=== PATIENT | female | born 1965 | race Caucasian/White ===

== ENCOUNTER → 2017-01-29 | Outpatient (CLI) | payer BC ==
[~2017-01-29] MED LIST: CLR10 PO; IBUP-1459 PO; OXYC-57 PO
== END | disposition home or self-care (01) ==
LOC: C.PAPS 09:27
PROVIDERS: ATTEND Physician Assistant
DX: Z01.419 Encounter for gynecological examination (general) (routine) without abnormal findings (principal)

== ENCOUNTER → 2017-02-12 | Outpatient (CLI) | payer BC ==
--- NOTE | 2017-02-13 07:55 | MAMMOGRAPHY REPORT ---
UNILATERAL LEFT DIGITAL DIAGNOSTIC MAMMOGRAM TOMOSYNTHESIS WITH CAD AND TARGETED LEFT ULTRASOUND: 01/19 CLINICAL HISTORY: 52-year-old woman presents with reported lymph node swelling and fullness in the le ft axilla. She can currently has a left frozen shoulder. History of prior benign right breast stere otactic biopsy. TECHNIQUE: Left breast CC and MLO 2-D and tomosynthesis images, spot magnification left CC and ML vi ews were obtained. Current study was also evaluated with a Computer Aided Detection (CAD) system. COMPARISON: Comparison is made to exams dated: 06/19/2016 mammogram, 11/30/2015 mammogram, 11/21/2015 m ammogram, 08/30/2014 mammogram, 05/22/2012 mammogram, and 09/12/2010 mammogram - [facility] enter. BREAST COMPOSITION: The tissue of the left breast is heterogeneously dense, which may obscure small masses. FINDINGS: A triangle palpable marker overlies the superior left axilla, identified on the MLO view. A few morphologically normal lymph nodes are identified projecting over the superior posterior pector trae muscle on the left MLO view, which appear similar in number and size comparing back to prior christiane mograms including the 2015 and 2010 mammograms. There is a small cluster of microcalcifications in t he far posterior, medial left breast on the CC view that is increasingly conspicuous compared to prio r exams. Additional spot magnification views were obtained. On the spot magnification views, there are approximately 3 punctate and additional faint amorphous microcalcifications measuring 3 x 7 mm. These are not clearly identified on the spot magnification MLO views. These most likely represent be nign fibrocystic changes as they appear similar to other numerous clusters of microcalcifications beverly aterally and also the biopsied cluster in the right breast. However, given the increased conspicuity , a short interval follow-up left diagnostic mammogram including spot magnification views is recommen ded in 6 months. Annual right mammography will be due at that time. Targeted ultrasound was performed in the left axilla in the area of swelling pointed out by the erikae nt. At least 3 morphologically normal lymph nodes are seen, the cortical thickness of these lymph no tanner is within the range of normal. No suspicious mass or suspicious lymphadenopathy identified. IMPRESSION: ACR-BI-RADS CATEGORY 3: PROBABLY BENIGN, TARGETED ULTRASOUND ACR-BI-RADS CATEGORY 3: PRO BABLY BENIGN 1. No suspicious lymphadenopathy or other suspicious abnormality within the area of swelling in the left axilla pointed out by the patient. A few morphologically normal lymph nodes project over the trevino perior pectoralis muscle on the MLO view that appear stable in size and number dating back to at leas t 2010. Several lymph nodes visualized on ultrasound are within the range of normal a cortical thick ness. Therefore, clinical follow-up is recommended as biopsy of a clinically suspicious mass should not be precluded by negative imaging. 2. There is a small cluster of faint amorphous and punctate microcalcifications in the far posterior medial left breast, only definitely seen on the CC view. They appear similar to other microcalcific ations in both breasts and are probably benign. However, given the increased conspicuity, a short in terval follow-up diagnostic left mammogram including spot magnification views is recommended to ensur e stability in 6 months. Annual right mammography will be due at that time. These results and recommendations were discussed with the patient at the time of the exam. Approximately 10% of breast cancers are not detected with mammography. A negative mammographic report should not delay biopsy if a clinically suggestive mass is present. Katrin Ramos M.D. ay/:02/12/2017 15:08:04 Teacher Dramatics: Aly VALERO(Laurie)(Alexa), [facility] letter sent: Follow Up Recommended 3 BI-RADS Code: ACR-BI-RADS Category 3: Probably Benign Ultrasound BI-RADS: ACR-BI-RADS Category 3: Pr obably Benign
== END | disposition home or self-care (01) ==
LOC: C.MAMM 13:04
PROVIDERS: ATTEND Physician Assistant
DX: R59.0 Localized enlarged lymph nodes (principal); R92.0 Mammographic microcalcification found on diagnostic imaging of breast

== ENCOUNTER → 2017-02-27 | Day surgery (SDC) | payer BC ==
[2017-02-12 12:01] VITALS: Ht 167.6 cm; Wt 72.7 kg
[2017-02-12 15:52] LABS: BASO % 0.8 %; BASO ABS # 0.05 K/uL (0-0.2); COMPLETE YES; EOS % 1.2 %; HEMATOCRIT 40.4 % (37-47); IG% 0.2 %; LYMPH % 32.1 %; MEAN CORPUSCULAR HEMOGLOBIN 29.3 pg (25-34); MEAN CORPUSCULAR HGB CONC 32.9 g/dl (32-36); MEAN PLATELET VOLUME 9.4 fL (7.4-10.4); MONO % 9.1 %; NEUT % 56.6 %; PLATELET COUNT 335 K/uL (130-400); RED BLOOD COUNT 4.54 M/uL (4.2-5.4); WHITE BLOOD COUNT 5.92 K/uL (4.8-10.8)
[2017-02-12 16:15] LABS: CREATININE 0.71 mg/dl (0.60-1.20); POTASSIUM 3.8 mmol/L (3.5-5.1)
[~2017-02-27] VITALS: Ht 167.6 cm; Wt 72.7 kg
[~2017-02-27] MED LIST changes: +ACETAMINOPHEN 325 MG TAB ONE; +ACETAMINOPHEN 325 MG TAB PO ONE; +ATROPINE SULFATE 0.1 MG/ML 5ML SYR IV PRN; +BUPIVACAINE 0.5 % 5 MG/1 ML PF 10ML VIAL ONE; +EpHEDrine SULFATE INJ 50 MG/ML AMP IV PRN; +FENTANYL CITRATE INJ 50 MCG/1 ML 2 ML VIAL IV PRN; +FENTANYL CITRATE INJ 50 MCG/1 ML 2 ML VIAL ONE; +HYDROmorphone INJ 1 MG/ML SYR IV PRN; +LACTATED RINGER'S 1000ML 1,000 ML IV SCH; +LIDOCAINE HCL 1% MPF 2 ML VIAL ONE; +METHYLPREDNISOLONE ACETATE 80 MG/ML VIAL ONE; +MIDAZOLAM HCL 1 MG/ML 2ML VIAL ONE; +ONDANSETRON INJ 2 MG/ML 2 ML VIAL IV PRN; +ONDANSETRON INJ 2 MG/ML 2 ML VIAL ONE; +OXYCODONE/ACETAMINOPHEN 5-325 TAB PO PRN; +PROMETHAZINE HCL INJ 12.5 MG in SODIUM CHLORIDE 0.9% 50ML 50 ML IV PRN; +PROPOFOL IV EMULSION 10 MG/ML 20 ML VIAL IV ONE; +ROPIVACAINE 0.5% 5 MG/ML 30 ML VIAL ONE; +SODIUM CHLORIDE 0.9% 1000ML 1,000 ML IV SCH
--- NOTE | 2017-02-27 08:08 | History & Physical Bridge Note ---
H&P Re-Evaluation Bridge Note: I have examined the patient, reviewed the History & Physical and in the interval since the performance of the History & Physical I have noted the following changes of clinical significance: No changes noted
[2017-02-27 12:25] VITALS: TEMP 36.6
--- NOTE | 2017-02-27 12:25 | Discharge Instructions-SurgCtr ---
Discharge Instructions Date of Service Feb 27, 2017. Visit Reason for Visit: Adhesive Capsulitis Of Shoulder;Pre-Op Discharge Discharge Diagnosis / Problem: SAME ABOVE Discharge Goals Goal(s): Decrease discomfort, Improve function Activity Recommendations Activity Limitations: as noted below Lifting Limitations: gradually increase as tolerated Exercise/Sports Limitations: gradually increase as tolerated Shower/Bathe: tomorrow Driving or Machine Use: resume 1 day after discharge Anesthesia . Post Anesthesia Instructions: If you have had General Anesthesia or IV Sedation: * Do not drive today. * Resume driving when surgeon permits. * Do not make important decisions or sign legal documents today. * Call surgeon for: 1. Temperature elevations greater than 101 degrees F. 2. Uncontrollable pain. 3. Excessive bleeding. 4. Persistent nausea and vomiting. 5. Medication intolerance (nausea, vomiting or rash). * For nausea and vomiting use only clear liquids such as: tea, soda, bouillon until nausea subsides, then gradually increase diet as tolerated. * If you have any concerns or questions, call your surgeon's office. If physician is unavailable and it is an emergency, call 911 or go to the nearest emergency room. . Instructions / Follow-Up Instructions / Follow-Up MEDICATIONS: * Resume previous medications unless instructed otherwise by your surgeon. * Always take pain medication on a full stomach or with food to avoid upset stomach. * Do not drink alcohol or drive while taking narcotics. * Ibuprofen or Tylenol may be taken if narcotic not needed. SPECIAL CARE INSTRUCTIONS: __ None _X_ Keep extremity elevated and iced x 48 hours; apply ice 20-30 minutes 8-10 times/day. May remove at night. _X_ Sling (REMOVE TOMORROW) __24 hrs/day __ Remove at night __ Shoulder Immobilizer __ 24 hrs/day __ Remove at night __ Dressing __ Maintain until seen in office, may shower with plastic over site __ Remove dressings in 24-48 hours and then may shower __ Cover incisions with band-aids after showering __ Do not remove steri-strips Call physician if chills or temperature rises above 102 degrees or pain unrelieved by prescribed pain medications at . . Diet Recommendations Home Diet: no limitations Fluid Restriction: None Procedures Procedures Performed: Left Shoulder Manipulation Under Anesthesia Pending Studies Studies pending at discharge: no Work Instructions Return To Work: 5 days (WHEN PAIN IS TOELRATED ) Medical Emergencies . Who to Call and When: Medical Emergencies: If at any time you feel your situation is an emergency, please call 911 immediately. . Non-Emergent Contact Non-Emergency issues call your: Primary Care Provider Call Non-Emergent contact if: you have a fever, temperature is above 101.5 . . "Provider Documentation" section prepared by Santiago Gomez. .
[2017-02-27 13:25] VITALS: BP 125/87; PULSE 73; O2SAT 97
--- NOTE | 2017-02-27 13:34 | Anesthesia Progress Nt - [facility] ---
Anesthesia Post Op Note Date & Time Feb 27, 2017 at 13:34 Vital Signs Pain Intensity: 3.0 Vital Signs Past 12 Hours Date Time Temp Pulse Resp B/P (MAP) Pulse Ox O2 Delivery O2 Flow Rate FiO2 02/27/17 13:25 73 14 125/87 (100) 97 Room Air 02/27/17 12:54 79 16 146/93 (110) 98 Room Air 02/27/17 12:25 36.6 78 16 118/77 (91) 95 Room Air 02/27/17 12:06 9 02/27/17 12:05 137/98 02/27/17 12:01 73 02/27/17 12:01 73 12 99 02/27/17 12:00 130/86 02/27/17 11:55 82 20 99 02/27/17 11:55 83 8 131/89 99 02/27/17 11:50 80 02/27/17 11:50 80 9 123/76 99 02/27/17 11:45 120/78 02/27/17 11:44 82 13 99 02/27/17 11:44 80 14 98 02/27/17 11:40 124/77 02/27/17 11:36 110/70 02/27/17 11:34 79 11 99 02/27/17 11:34 80 02/27/17 11:30 127/84 02/27/17 11:29 87 02/27/17 11:29 86 14 94 02/27/17 11:28 80 18 121/78 (92) 100 Mask 6 02/27/17 10:29 36.7 71 16 111/73 (86) 100 Room Air Notes Mental Status: alert / awake / arousable, participated in evaluation Pt Amnestic to Procedure: Yes Nausea / Vomiting: adequately controlled Pain: adequately controlled Airway Patency, RR, SpO2: stable & adequate BP & HR: stable & adequate Hydration State: stable & adequate Anesthetic Complications: no major complications apparent
--- NOTE | 2017-02-27 15:30 | [facility] Post Operative Brief Note ---
Immediate Operative Summary Operative Date Feb 27, 2017. Pre-Operative Diagnosis Adhesive Capsulitis of Left Shoulder Post-Operative Diagnosis Same Procedure(s) Performed Left Shoulder Manipulation Under Anesthesia Surgeon Dr. Alvarez Community Educator Surgeon(s) None Estimated Blood Loss 0 Findings as above Specimens None Complication(s) None Disposition Recovery Room / PACU
--- NOTE | 2017-02-27 18:15 | OPERATIVE REPORT ---
DATE OF OPERATION: 02/27/2017 PREOPERATIVE DIAGNOSIS: Adhesive capsulitis of the left shoulder. POSTOPERATIVE DIAGNOSIS: Same. PROCEDURE: Manipulation under anesthesia, left shoulder. SURGEON: Dr. Damián Alvarez. URBAN FORESTER: None. ANESTHESIA: General with a left interscalene nerve block. COMPLICATIONS: None. CONDITION: Stable to PACU. INDICATIONS: Vernell is a pleasant 52-year-old female who has been dealing with increasing tightness of her left shoulder. Clinical examination was diagnostic for adhesive capsulitis. After failing conservative treatment, she elected to undergo a manipulation. DESCRIPTION OF PROCEDURE: On 02/27/2017, she arrived at [facility] for the above procedure. She was seen in the preoperative holding area and the operative extremity was identified and signed. She was given a left interscalene nerve block and taken back to the operating room, laid on the table in supine position and given general anesthesia. A time-out was done and the patient and operative extremity was properly identified. Preoperatively, she only had about 60 degrees of abduction and 30 degrees of external rotation. A gentle manipulation was done under anesthesia in both abduction, external and internal rotation. I was able to break up the adhesions of the capsule and get full range of motion of her shoulder. The shoulder was then injected with 80 mg of Depo-Medrol and 5 mL of Marcaine. She was then taken to the postanesthesia care unit in stable condition. She tolerated the procedure well. I attest to the content of the Intraoperative Record and any orders documented therein. Any exception s are noted below.
== END | disposition home or self-care (01) ==
LOC: X.SURG 10:10
PROVIDERS: ATTEND Orthopaedic Surgery
DX: M75.02 Adhesive capsulitis of left shoulder (principal); Z87.891 Personal history of nicotine dependence

== ENCOUNTER → 2017-08-18 | Outpatient (CLI) | payer OTHER ==
[~2017-08-18] MED LIST changes: -ACETAMINOPHEN 325 MG TAB ONE; -ACETAMINOPHEN 325 MG TAB PO ONE; -ATROPINE SULFATE 0.1 MG/ML 5ML SYR IV PRN; -BUPIVACAINE 0.5 % 5 MG/1 ML PF 10ML VIAL ONE; -EpHEDrine SULFATE INJ 50 MG/ML AMP IV PRN; -FENTANYL CITRATE INJ 50 MCG/1 ML 2 ML VIAL IV PRN; -FENTANYL CITRATE INJ 50 MCG/1 ML 2 ML VIAL ONE; -HYDROmorphone INJ 1 MG/ML SYR IV PRN; -LACTATED RINGER'S 1000ML 1,000 ML IV SCH; -LIDOCAINE HCL 1% MPF 2 ML VIAL ONE; -METHYLPREDNISOLONE ACETATE 80 MG/ML VIAL ONE; -MIDAZOLAM HCL 1 MG/ML 2ML VIAL ONE; -ONDANSETRON INJ 2 MG/ML 2 ML VIAL IV PRN; -ONDANSETRON INJ 2 MG/ML 2 ML VIAL ONE; -OXYCODONE/ACETAMINOPHEN 5-325 TAB PO PRN; -PROMETHAZINE HCL INJ 12.5 MG in SODIUM CHLORIDE 0.9% 50ML 50 ML IV PRN; -PROPOFOL IV EMULSION 10 MG/ML 20 ML VIAL IV ONE; -ROPIVACAINE 0.5% 5 MG/ML 30 ML VIAL ONE; -SODIUM CHLORIDE 0.9% 1000ML 1,000 ML IV SCH
--- NOTE | 2017-08-18 15:53 | MAMMOGRAPHY REPORT ---
BILATERAL DIGITAL DIAGNOSTIC MAMMOGRAM TOMOSYNTHESIS WITH CAD: 08/18/2017 CLINICAL HISTORY: Short interval follow-up of left breast calcifications. History of benign stereota ctic biopsy of the right breast. Due for routine annual mammography. TECHNIQUE: Breast tomosynthesis in addition to standard 2D mammography was performed. Current study was also evaluated with a Computer Aided Detection (CAD) system. Bilateral CC and MLO 2-D and tomosy nthesis images and spot magnification left CC and ML views were obtained. COMPARISON: Comparison is made to exams dated: 02/12/2017 mammogram, 02/12/2017 ultrasound, 06/19/2016 mammogram, 11/30/2015 mammogram, 11/21/2015 mammogram, and 08/30/2014 mammogram - [facility]. BREAST COMPOSITION: The tissue of both breasts is heterogeneously dense, which may obscure small mas ses. FINDINGS: Spot magnification views of the left breast demonstrate a small 3 mm cluster of punctate c alcifications within the left superior posterior breast, not clearly evident on the cc view but thoug ht to project laterally based on the tomosynthesis localizer bar. This cluster appears similar to th e previously biopsied cluster of calcifications in the right breast and is probably benign. The othe r previously described grouped calcifications within the left medial posterior breast on the cc view are not significantly changed compared to the January 2017 exam and are probably benign. The remainder of both breasts are not significantly changed, without suspicious masses, calcifications, or areas of architectural distortion noted. Other scattered bilateral benign-appearing calcifications are noted . A biopsy marker clip is again noted within the right upper outer quadrant from prior benign stereo tactic biopsy. IMPRESSION: ACR-BI-RADS CATEGORY 3: PROBABLY BENIGN Two groups of punctate benign appearing calcifications in the left breast are probably benign. Recom mend follow-up diagnostic tomosynthesis mammograms of the left breast in 6 months to reevaluate. The patient has been verbally notified of the results. Approximately 10% of breast cancers are not detected with mammography. A negative mammographic report should not delay biopsy if a clinically suggestive mass is present. Isabel Wolf M.D. /:08/18/2017 11:57:58 General Internist: Aly VALERO(Laurie)(Alexa), [facility] letter sent: Follow Up Recommended 3 BI-RADS Code: ACR-BI-RADS Category 3: Probably Benign
== END | disposition home or self-care (01) ==
LOC: C.MAMM 10:54
PROVIDERS: ATTEND Obstetrics & Gynecology
DX: R92.0 Mammographic microcalcification found on diagnostic imaging of breast (principal)

== ENCOUNTER → 2017-11-13 | Outpatient (CLI) | payer OTHER, BC ==
[~2017-11-13] MED LIST changes: -OXYC-57 PO
--- NOTE | 2017-11-14 08:01 | PULMONARY FUNCTION TEST ---
CLINICAL DATA: 52-year-old female with a height of 66 inches and a weight of [address] Perez for evaluation of shortness of breath. Pre-bronchodilator spirometry was performed. FINDINGS: Pre-bronchodilator spirometry was within normal limits. FVC was 117% of predicted. FEV1 was 113% of predicted. [id number] was 97% of predicted. IMPRESSION: Normal baseline spirometry. MTDD
== END | disposition home or self-care (01) ==
LOC: C.RC 09:51
PROVIDERS: ATTEND Family Medicine
DX: R06.02 Shortness of breath (principal)

== ENCOUNTER → 2018-02-16 | Outpatient (CLI) | payer OTHER ==
--- NOTE | 2018-02-16 15:43 | MAMMOGRAPHY REPORT ---
UNILATERAL LEFT DIGITAL DIAGNOSTIC MAMMOGRAM TOMOSYNTHESIS WITH CAD: 02/16/2018 CLINICAL HISTORY: 53-year-old woman presents for continued close follow-up evaluation of the left nolberto ast. She has a history of prior benign right breast stereotactic biopsy performed in December 2015. There was a non-biopsied cluster of faint calcifications in the medial, far posterior left breast for whic h serial follow-up imaging was performed but on the most recent prior follow-up, a new cluster of marcelina cifications was also seen in the superior left breast, only on the MLO view. Now patient presents to reevaluate both clusters of calcifications in the left breast. TECHNIQUE: Left CC, MLO and exaggerated lateral CC 2D and tomosynthesis images; spot magnification le ft CC and ML views were obtained. Current study was also evaluated with a Computer Aided Detection ( CAD) system. COMPARISON: Comparison is made to exams dated: 08/18/2017 mammogram, 02/12/2017 mammogram, 06/19/2016 mammogram, 12/22/2015 mammogram, 11/30/2015 mammogram, and 11/21/2015 mammogram - [facility]. BREAST COMPOSITION: The tissue of left breast is heterogeneously dense, which may obscure small luci s. FINDINGS: The glandular tissue pattern of the left breast is similar to prior exams. There is a stab le grouping of coarse heterogeneous calcifications and a few scattered benign rim calcifications in t he left breast. There is a very faint grouping of punctate/amorphous microcalcifications in the slig htly medial and far posterior left breast, best appreciated on tomosynthesis slice 1723/89 and overa ll better seen on the 2D full-field view as opposed to the spot magnification view. This cluster of calcifications appears somewhat similar to prior exams including the 02/12/2017 spot magnification vie ws and also the full-field to 05/09/2015 mammogram, suggesting benignity. The cluster of calcificati ons in the superior posterior left breast on the MLO view appears increased in number based on the fu ll-field view. A spot magnification view performed in the superior left breast demonstrates a 3.8 mm cluster of calcifications. Given the apparent increase in number and conspicuity of this cluster, a n additional exaggerated lateral CC view was performed which demonstrates this new cluster of calcifi cations to be in the lateral, far posterior aspect of the left breast. Given the interval increase i n number at this cluster of calcifications is indeterminate and definitive characterization with a st ereotactic biopsy is recommended. Pending benign pathology results, could continue to follow the relatively stable cluster of faint or amorphous calcifications in the medial, far posterior left breast in 6 more months. IMPRESSION: ACR BI-RADS CATEGORY 4: SUSPICIOUS 1. A 3.8 mm cluster of calcifications in the upper outer posterior left breast is increased in numbe r comparing to the most recent spot magnification views and diagnostic mammograms dated 08/18/2017 and it is therefore indeterminate. Definitive characterization with a left breast stereotactic biopsy i s recommended. 2. The fainter cluster of amorphous microcalcifications in the medial, posterior left breast appears stable for at least 2 years and is most likely benign. Pending benign pathology results from the le ft stereotactic biopsy, could continue to follow the second cluster in 6 more months to ensure longer stability. Annual right mammography will also be due at that time. These results and recommendations were discussed with the patient at the time of the exam. She tenta tively scheduled the left breast stereotactic biopsy prior to leaving our department. Some breast cancers are not detected with mammography. A negative mammographic report should not theo y biopsy if a clinically suggestive mass is present. Katrin Ramos M.D. ay/:02/16/2018 10:50:32 Bulkhead Carpenter: RT Danette(Laurie)(Alexa), [facility] letter sent: Abnormal 4/5 BI-RADS Code: ACR BI-RADS Category 4: Suspicious
== END | disposition home or self-care (01) ==
LOC: C.MAMM 08:55
PROVIDERS: ATTEND Obstetrics & Gynecology
DX: Z09 Encounter for follow-up examination after completed treatment for conditions other than malignant neoplasm (principal); R92.1 Mammographic calcification found on diagnostic imaging of breast; R92.0 Mammographic microcalcification found on diagnostic imaging of breast